=== PATIENT | female | born 2000 | race Caucasian/White ===

== ENCOUNTER 2019-11-04 02:50 | Emergency (ER) | payer BC ==
--- NOTE | 2019-11-04 03:33 | PDOC ---
History of Present Illness - General Stated Complaint: FOOT PAIN - History of Present Illness Initial Comments: HPI Pt is a 18yo F with no significant PMH who presents with left foot pain. Pt was walking down the stairs when she rolled her left ankle. Denies fall, LOC, lightheadedness/dizziness. She has not been able to bear weight on left foot since incident. Reports an incident of injury to left ankle one year prior when she also inverted her foot. Has not taken anything for pain relief since incident (states that she took 2 Advil at 6pm for other reasons). Denies f/c,chest pain,shortness of breath, headache, abdominal pain, n/v. PCP: Izzy PMH: denies PSH: denies Meds: denies Allergies: NKDA Review of Systems CONSTITUTIONAL:denies fever, chills, generalized weakness, malaise HEENT:denies rhinorrhea, nasal congestion, sore throat CARDIOVASCULAR:denies chest pain, syncope, palpitations, lightheadedness, peripheral edema RESPIRATORY:denies cough, shortness of breath GASTROINTESTINAL: denies abdominal pain, nausea, vomiting GENITOURINARY:denies dysuria, frequency MUSCULOSKELETAL:denies myalgia, arthralgia HEMATOLOGIC/IMMUNOLOGIC:denies easy bleeding, easy bruising ENDOCRINE: denies unexplained weight gain, unexplained weight loss NEUROLOGIC:denies headache, loss of consciousness, focal weakness or paresthesias, dizziness, unsteady gait, mental status changes SKIN:denies rash, itching, pallor Physical Exam General: awake, alert, fully oriented, in no acute distress, well developed, well nourished Head: normocephalic, atraumatic Eyes: PERRL, EOMI, anicteric sclera, conjunctiva clear ENT: Auricles normal inspection, hearing grossly normal, Moist mucous membranes Neck: supple, normal ROM Lung: equal breath sounds b/l, CTA b/l, no crackles, wheezes; no distress, speak s full sentences Heart: RRR, normal S1, S2, no murmurs appreciated Abdomen: soft, non tender, normoactive bowel sounds Extremities: limited ROM about left ankle, 5x3cm area of swelling at lateral L midfoot, DP/PT pulses 2+ and symmetric, no clubbing, cyanosis, neurovascularly intact Neuro: CN2-12 grossly intact, moves all extremities, normal speech, sensation intact Skin: warm, dry MDM Pt is a 18yo F with no significant PMH who presents with left foot pain. DDx including but not limited to: ligamentous injury, fracture Workup: foot xray TX: pain control ED course Given PO Tylenol; states mild improvement in pain xray ankle: fracture of proximal fifth metatarsal Foot splinted with posterior short leg splint Will give crutches Will give f/u with orthopedics outpatient Re-assessment: Patient stable for discharge. Pain controlled. Informed of all imaging results. Given follow up instructions and strict return precautions. Patient expressed understanding and agree to plan Disposition: Discharge to home Discharge - Discharge Information Problems reviewed: Yes Clinical Impression/Diagnosis: Metatarsal bone fracture Qualifiers: Encounter type: initial encounter Metatarsal bone: fifth Fracture type: closed Physeal involvement: unspecified Laterality: left Qualified Code(s): S92.352A - Displaced fracture of fifth metatarsal bone, left foot, initial encounter for closed fracture Condition: Stable Disposition: HOME - Admission No - Follow up/Referral Referrals: Kem Ross MD [Staff Physician] - Curt Josue MD [Staff Physician] - - Patient Discharge Instructions Patient Printed Discharge Instructions: How to Use Crutches, DI for Foot Fracture Additional Instructions: You were seen in the emergency department for an injury to your left foot. You were found to have a fracture of your left foot. You had a splint placed to help the foot fracture heal. Home Care: - You will most likely have pain, swelling and bruising for at least the next week. These should improve over time. - Keep your splint in place. - Keep the splint dry. You may cover the splint with a plastic bag, rubber band over the end, to shower. - Apply ice as much as possible for the next 2-3 days. This will help reduce pain and swelling. - Use ibuprofen (Advil or Motrin) 400mg or acetaminophen (Tylenol) 650mg every 6 hours as needed for pain. These may be alternated every 3 hours if needed for severe pain. - If your toes become swollen or feel numb, take the MELIA wrap off your splint. Your toes should return back to normal quickly. Replace the MELIA loosely or return to the ED. Follow Up: - You need to follow up with orthopedics within the next 7 days for evaluation of your fracture. You have been given contact information for Drs. Ross and Joselo. Call as soon as possible to schedule an appointment. - Seek immediate care if you have severe pain, your toes become numb (and do not improve with removal of the wrap), your toes are cold or blue, you have severe swelling or redness, or you have any other medical emergency. Thank you for coming to the [facility] ER. We hope you feel better soon! - Post Discharge Activity
[2019-11-04] MEDS ORDERED: ACETAMINOPHEN 325 MG TABLET (FP) PO ONE (03:53)
[2019-11-04 04:02] VITALS: BP 105/61; PULSE 89; TEMP 97.7; BMI 29.7
--- NOTE | 2019-11-04 04:05 | PDOC ---
Attending Attestation - Resident Resident Name: ErickAmber - ED Attending Attestation I have performed the following: I have examined & evaluated the patient, The case was reviewed & discussed with the resident, I agree w/resident's findings & plan - HPI HPI: 11/04/19 20:32 Pt injured foot when she fell today; see resident note for detail. - Physicial Exam PE: 11/04/19 20:36 Pt has severe swelling at the lateral aspect of the foot/midfoot area - Medical Decision Making 11/04/19 20:38 Pt has a base of the 5th metatarsal fracture; she will be placed in a posterior splint and she will be asked to follow with ortho as an outpatient for casting and followup. Discharge - Discharge Information Problems reviewed: Yes Clinical Impression/Diagnosis: Metatarsal bone fracture Qualifiers: Encounter type: initial encounter Metatarsal bone: fifth Fracture type: closed Physeal involvement: unspecified Laterality: left Qualified Code(s): S92.352A - Displaced fracture of fifth metatarsal bone, left foot, initial encounter for closed fracture Condition: Stable Disposition: HOME - Follow up/Referral Referrals: Kem Ross MD [Staff Physician] - Curt Josue MD [Staff Physician] - - Patient Discharge Instructions Patient Printed Discharge Instructions: How to Use Crutches, DI for Foot Fracture Additional Instructions: You were seen in the emergency department for an injury to your left foot. You were found to have a fracture of your left foot. You had a splint placed to help the foot fracture heal. Home Care: - You will most likely have pain, swelling and bruising for at least the next week. These should improve over time. - Keep your splint in place. - Keep the splint dry. You may cover the splint with a plastic bag, rubber band over the end, to shower. - Apply ice as much as possible for the next 2-3 days. This will help reduce pain and swelling. - Use ibuprofen (Advil or Motrin) 400mg or acetaminophen (Tylenol) 650mg every 6 hours as needed for pain. These may be alternated every 3 hours if needed for severe pain. - If your toes become swollen or feel numb, take the MELIA wrap off your splint. Your toes should return back to normal quickly. Replace the MELIA loosely or return to the ED. Follow Up: - You need to follow up with orthopedics within the next 7 days for evaluation of your fracture. You have been given contact information for Drs. Ross and Joselo. Call as soon as possible to schedule an appointment. - Seek immediate care if you have severe pain, your toes become numb (and do not improve with removal of the wrap), your toes are cold or blue, you have severe swelling or redness, or you have any other medical emergency. Thank you for coming to the [facility] ER. We hope you feel better soon! - Post Discharge Activity
[2019-11-04] MEDS ORDERED: ACETAMINOPHEN 325 MG TABLET (FP) ONE (04:35)
== END 2019-11-04 05:54 | disposition home or self-care (01) ==
LOC: JER 02:50
DX: S92.352A Displaced fracture of fifth metatarsal bone, left foot, initial encounter for closed fracture (principal)
CPT/HCPCS: 73610-TC-LT-FY; 73630-TC-LT; 99283-25

== ENCOUNTER 2021-07-07 01:21 | Emergency (ER) | payer BC ==
[2021-07-07 01:41] VITALS: BP 110/76; PULSE 85; TEMP 97.9; BMI 25.0
[2021-07-07] MEDS ORDERED: ACETAMINOPHEN 325 MG TABLET (FP) PO ONE (02:42)
[2021-07-07] MEDS ORDERED: ACETAMINOPHEN 325 MG TABLET (FP) ONE ×2 (03:47→04:08)
== END 2021-07-07 05:38 | disposition home or self-care (01) ==
LOC: JER 01:21
DX: M79.672 Pain in left foot (principal); W19.XXXA Unspecified fall, initial encounter
CPT/HCPCS: 73562-TC-LT-FY; 73590-TC-LT-FY; 73610-TC-LT-FY; 73630-TC-LT; 99284-25

== ENCOUNTER 2022-11-02 21:57 | Emergency (ER) | payer BC ==
[2022-11-02 22:15] VITALS: BP 116/70; PULSE 75; RESP 16; TEMP 98.4; BMI 23.6
[2022-11-03] MEDS ORDERED: METOCLOPRAMIDE HCL INJECTION 10 MG/2 ML VIAL IM ONE (00:47)
[2022-11-03] MEDS ORDERED: ACETAMINOPHEN 1000 MG/100 ML BAG IVPB ONE (00:47)
[2022-11-03] MEDS ORDERED: SODIUM CHLORIDE 0.9% 500 ML INFUS.BAG IV ONE (00:47)
[2022-11-03] MEDS ORDERED: METOCLOPRAMIDE HCL INJECTION 10 MG/2 ML VIAL IVPB ONE ×2 (00:58→03:32)
[2022-11-03] MEDS ORDERED: METOCLOPRAMIDE HCL INJECTION 10 MG/2 ML VIAL ONE (01:51)
[2022-11-03] MEDS ORDERED: ACETAMINOPHEN INJECTION 100 ML IVPB ONE (01:51)
[2022-11-03] MEDS ORDERED: diazePAM 5 MG TABLET PO ONE (03:32)
[2022-11-03] MEDS ORDERED: ONDANSETRON *ODT* 4 MG TABLET SL ONE (03:37)
[2022-11-03] MEDS ORDERED: ONDANSETRON *ODT* 4 MG TABLET ONE (03:44)
[2022-11-03] MEDS ORDERED: diazePAM 5 MG TABLET ONE (03:44)
== END 2022-11-03 04:07 | disposition home or self-care (01) ==
LOC: JER 21:57
PROC: 3E033NZ Introduction of Analgesics, Hypnotics, Sedatives into Peripheral Vein, Percutaneous Approach (ICD-10-PCS; principal; 2022-11-03)
PROC: 3E033GC Introduction of Other Therapeutic Substance into Peripheral Vein, Percutaneous Approach (ICD-10-PCS; 2022-11-03)
DX: R51.9 Headache, unspecified (principal); R11.2 Nausea with vomiting, unspecified
CPT/HCPCS: 99284-25; Q0162